=== PATIENT | female | born 1975 | race Two or more races ===

== ENCOUNTER 2018-03-21 16:17 | Emergency (ER) | payer MEDICAID ==
[~2018-03-21] VITALS: Ht 167.6 cm; Wt 91.0 kg
[2018-03-21] MEDS ORDERED: KETOROLAC 30MG/ML VIAL IM ONE (17:00)
[2018-03-21] MEDS ORDERED: ONDANSETRON 4MG ODT PO ONE (17:00)
[2018-03-21] MEDS ORDERED: MORPHINE SULFATE 10 MG/ML CPJ IM ONE (17:00)
[2018-03-21 19:30] VITALS: BP 149/74
== END 2018-03-21 19:30 | disposition home or self-care (01) ==
LOC: ER 16:17
DX: M25.511 Pain in right shoulder (principal); M54.2 Cervicalgia; M54.5 Low back pain; R03.0 Elevated blood-pressure reading, without diagnosis of hypertension; V89.2XXA Person injured in unspecified motor-vehicle accident, traffic, initial encounter; Y93.89 Activity, other specified; Y92.488 Other paved roadways as the place of occurrence of the external cause
CPT/HCPCS: 71045; 72040; 73030; 96372; 99284; J1885; J2270; Q0162